=== PATIENT | female | born 1995 | race Two or more races ===

== ENCOUNTER 2022-09-23 22:21 | Emergency (ER) | payer OTHER ==
[~2022-09-23] VITALS: Ht 162.6 cm; Wt 49.9 kg
[2022-09-24] MEDS ORDERED: CEPHALEXIN500 MG PO (01:13)
[2022-09-24] MEDS ORDERED: PYRIDIUM DS200 MG PO (01:13)
== END 2022-09-24 01:40 ==
LOC: ER 22:21
DX: N39.0 Urinary tract infection, site not specified (principal)